=== PATIENT | female | born 1950 | race Caucasian/White ===

== ENCOUNTER 2018-03-22 00:04 | Day surgery (SDC) | payer MEDICARE ==
[~2018-03-22 00:04] MED LIST: ALEN70 PO; ASPI81CH PO; CEFU50SU; CHLO25B PO; DICL75ER PO; DULO60 PO; FLUC150A; FURO40 PO; Hydrocodone-Ap1 EA23 PO; IRBE150 PO; LEVO750; LEVSOD150 PO; MAGOXI400 PO; NEBI5 PO; POTASSIUM PHOS PO; POTCHL10ER PO; PRED5 PO; TRIA80TC TOP; Zofran Odt4 MG PO
== END 2018-03-22 15:30 | disposition home or self-care (01) ==
LOC: ATC 00:04
DX: M05.79 Rheumatoid arthritis with rheumatoid factor of multiple sites without organ or systems involvement (principal)
CPT/HCPCS: 96365; J0129

== ENCOUNTER 2018-04-22 00:25 | Day surgery (SDC) | payer MEDICARE | END 2018-04-22 15:38 | disposition home or self-care (01) | LOC: ATC 00:25 | DX: M05.79 Rheumatoid arthritis with rheumatoid factor of multiple sites without organ or systems involvement (principal) | CPT/HCPCS: 96365; J0129 ==

== ENCOUNTER 2018-07-27 00:10 | Day surgery (SDC) | payer MEDICARE ==
[~2018-07-27 00:10] MED LIST changes: +PRED1 PO
== END 2018-07-27 16:05 | disposition home or self-care (01) ==
LOC: ATC 00:10
DX: M05.79 Rheumatoid arthritis with rheumatoid factor of multiple sites without organ or systems involvement (principal)
CPT/HCPCS: 96365; J0129

== ENCOUNTER 2018-08-29 00:24 | Day surgery (SDC) | payer MEDICARE | END 2018-08-29 15:07 | disposition home or self-care (01) | LOC: ATC 00:24 | DX: M05.79 Rheumatoid arthritis with rheumatoid factor of multiple sites without organ or systems involvement (principal); Z88.5 Allergy status to narcotic agent; Z88.2 Allergy status to sulfonamides; Z88.8 Allergy status to other drugs, medicaments and biological substances; I10 Essential (primary) hypertension; E03.9 Hypothyroidism, unspecified | CPT/HCPCS: 96365; J0129 ==

== ENCOUNTER 2018-09-26 00:37 | Day surgery (SDC) | payer MEDICARE | END 2018-09-26 15:43 | disposition home or self-care (01) | LOC: ATC 00:37 | DX: M05.79 Rheumatoid arthritis with rheumatoid factor of multiple sites without organ or systems involvement (principal); I10 Essential (primary) hypertension | CPT/HCPCS: J0129 ==

== ENCOUNTER 2018-10-26 00:42 | Day surgery (SDC) | payer MEDICARE ==
[2018-10-26] MEDS ORDERED: ABAT250V IV (14:50)
== END 2018-10-26 15:13 | disposition home or self-care (01) ==
LOC: ATC 00:42
DX: M05.89 Other rheumatoid arthritis with rheumatoid factor of multiple sites (principal); I10 Essential (primary) hypertension; E66.9 Obesity, unspecified; Z79.899 Other long term (current) drug therapy; Z79.82 Long term (current) use of aspirin; Z68.41 Body mass index [BMI] 40.0-44.9, adult
CPT/HCPCS: 96365; J0129

== ENCOUNTER 2018-12-29 00:06 | Day surgery (SDC) | payer MEDICARE ==
[~2018-12-29 00:06] MED LIST changes: +ABAT250V IV
--- NOTE | 2018-12-29 14:58 | NUR ---
HTN: UPON ARRIVAL BP: 195/70, HR 61 LFA; RECHECKED USING LARGER CUFF ELENITA: 187/72, HR 66; RECHECKED MANUALLY TD: 182/80. CALLED DR DISLA OFFICE AND SPOKE WITH GIOVANNI PARKS. SHE GAVE INFO TO SAMPLE CLERK MD WHO SAID TO RESCHEDULE PT FOR NEXT WEEK AND HAVE HER F/U WITH HER PCP. PT VERBALIZED UNDERSTANDING, SAID SHE WOULD GO STRAIGHT TO URGENT CARE NOW SHE MAY NOT BE ABLE TO GET IN TO SEE HER PCP BEFORE NEXT WEEK.
[2018-12-29] MEDS ORDERED: FOLI1 PO (15:10)
[2018-12-29] MEDS ORDERED: IBUP400 PO (15:13)
[2018-12-29] MEDS ORDERED: LEFL20 PO (15:13)
== END 2018-12-29 14:55 | disposition home or self-care (01) ==
LOC: ATC 00:06
DX: M05.79 Rheumatoid arthritis with rheumatoid factor of multiple sites without organ or systems involvement (principal); I10 Essential (primary) hypertension; E66.9 Obesity, unspecified; Z79.899 Other long term (current) drug therapy; Z88.5 Allergy status to narcotic agent; Z88.2 Allergy status to sulfonamides; Z88.8 Allergy status to other drugs, medicaments and biological substances
CPT/HCPCS: 99211; J0129

== ENCOUNTER 2019-01-04 00:13 | Day surgery (SDC) | payer MEDICARE ==
[~2019-01-04 00:13] MED LIST changes: +FOLI1 PO; +IBUP400 PO; +LEFL20 PO
== END 2019-01-04 11:50 | disposition home or self-care (01) ==
LOC: ATC 00:13
DX: M05.79 Rheumatoid arthritis with rheumatoid factor of multiple sites without organ or systems involvement (principal); I10 Essential (primary) hypertension; E78.00 Pure hypercholesterolemia, unspecified; E66.9 Obesity, unspecified; Z88.5 Allergy status to narcotic agent; Z88.2 Allergy status to sulfonamides; Z88.8 Allergy status to other drugs, medicaments and biological substances; Z68.41 Body mass index [BMI] 40.0-44.9, adult
CPT/HCPCS: 96365; J0129

== ENCOUNTER 2019-02-03 00:48 | Day surgery (SDC) | payer MEDICARE | END 2019-02-03 14:58 | disposition home or self-care (01) | LOC: ATC 00:48 | DX: M05.79 Rheumatoid arthritis with rheumatoid factor of multiple sites without organ or systems involvement (principal); I10 Essential (primary) hypertension; E66.9 Obesity, unspecified; Z68.41 Body mass index [BMI] 40.0-44.9, adult | CPT/HCPCS: 96365; J0129 ==

== ENCOUNTER 2019-03-06 00:08 | Day surgery (SDC) | payer MEDICARE | END 2019-03-06 14:42 | disposition home or self-care (01) | LOC: ATC 00:08 | DX: M05.79 Rheumatoid arthritis with rheumatoid factor of multiple sites without organ or systems involvement (principal); I10 Essential (primary) hypertension; E78.00 Pure hypercholesterolemia, unspecified; E66.9 Obesity, unspecified; Z88.5 Allergy status to narcotic agent; Z88.2 Allergy status to sulfonamides; Z88.8 Allergy status to other drugs, medicaments and biological substances | CPT/HCPCS: 96365; J0129 ==

== ENCOUNTER 2019-04-05 00:12 | Day surgery (SDC) | payer MEDICARE | END 2019-04-05 14:55 | disposition home or self-care (01) | LOC: ATC 00:12 | DX: M05.79 Rheumatoid arthritis with rheumatoid factor of multiple sites without organ or systems involvement (principal); I10 Essential (primary) hypertension | CPT/HCPCS: 96365; J0129 ==

== ENCOUNTER 2019-05-09 00:07 | Day surgery (SDC) | payer MEDICARE | END 2019-05-09 15:28 | disposition home or self-care (01) | LOC: ATC 00:07 | DX: M05.79 Rheumatoid arthritis with rheumatoid factor of multiple sites without organ or systems involvement (principal); I10 Essential (primary) hypertension; E66.9 Obesity, unspecified; Z88.5 Allergy status to narcotic agent; Z88.8 Allergy status to other drugs, medicaments and biological substances; Z88.2 Allergy status to sulfonamides; Z79.82 Long term (current) use of aspirin; Z79.899 Other long term (current) drug therapy; Z68.41 Body mass index [BMI] 40.0-44.9, adult | CPT/HCPCS: 96365; J0129 ==

== ENCOUNTER 2019-06-09 00:13 | Day surgery (SDC) | payer MEDICARE ==
--- NOTE | 2019-06-09 15:11 | NUR ---
BP DEFERRED AFTER INFUSION, PT REFUSED.
== END 2019-06-09 15:08 | disposition home or self-care (01) ==
LOC: ATC 00:13
DX: M05.79 Rheumatoid arthritis with rheumatoid factor of multiple sites without organ or systems involvement (principal); I10 Essential (primary) hypertension; E66.9 Obesity, unspecified; Z88.5 Allergy status to narcotic agent; Z88.8 Allergy status to other drugs, medicaments and biological substances; Z88.2 Allergy status to sulfonamides; Z79.82 Long term (current) use of aspirin; Z79.899 Other long term (current) drug therapy; Z68.41 Body mass index [BMI] 40.0-44.9, adult
CPT/HCPCS: J0129

== ENCOUNTER → 2019-07-04 | Outpatient (CLI) | payer MEDICARE ==
[~2019-07-04] MED LIST changes: -ASPI81CH PO; +ATOR80; +Aspirin EC81 MG PO; +DILTIAZEM 24HR120 M2 PO; +KLOR-CON M1010 MEQ PO; +Lopressor 50 mg50 MG PO; +Prednisone1 MG PO; +XARELTO15 MG PO
== END | disposition home or self-care (01) ==
LOC: LAB SHORT 18:27 → LAB EV 18:27
DX: N39.0 Urinary tract infection, site not specified (principal)
CPT/HCPCS: 87086

== ENCOUNTER 2019-07-06 13:15 | Emergency (ER) | payer MEDICARE ==
[~2019-07-06] VITALS: Ht 165.1 cm; Wt 131.5 kg
[~2019-07-06 13:15] MED LIST changes: -ATOR80; -DILTIAZEM 24HR120 M2 PO; -KLOR-CON M1010 MEQ PO; -Lopressor 50 mg50 MG PO; -Prednisone1 MG PO; -XARELTO15 MG PO
[2019-07-06 13:32] LABS: BASOPHILS ABSOLUTE AUTO 0.05 K/mm3 (0.00-0.23); BASOPHILS PERCENT AUTO 1 % (0-2); EOSINOPHILS PERCENT AUTO 4 % (0-6); Hematocrit 45.5 % (33.0-51.0); IMMATURE GRAN ABSOLUTE AUTO 0.04 K/mm3 (0.00-0.10); IMMATURE GRAN PERCENT AUTO 0 % (0-1); LYMPHOCYTES ABSOLUTE AUTO 3.16 K/mm3 (0.84-5.20); LYMPHOCYTES PERCENT AUTO 31 % (21-46); MONOCYTES ABSOLUTE AUTO 0.88 K/mm3 (0.16-1.47); MONOCYTES PERCENT AUTO 9 % (4-13); Mean Corpuscular HGB 30.1 pg (26.0-34.0); Mean Corpuscular Volume 91 fL (80-100); Mean Platelet Volume 10.5 fL (9.1-12.4); NEUTROPHILS ABSOLUTE AUTO 5.77 K/mm3 (1.96-9.15); NEUTROPHILS PERCENT AUTO 56 % (41-73); Platelet Count 241 K/mm3 (150-400); RDW Coefficient Variation 13.2 % (11.7-14.2); RDW Standard Deviation 43.5 fL (35.1-46.3); Red Blood Cell Count 4.98 M/mm3 (3.80-5.20)
[2019-07-06 13:53] LABS: International Normalized Ratio 1.03; Prothrombin Time Results 10.9 Sec (9.7-11.5)
[2019-07-06 13:55] LABS: Alanine Aminotransfer (ALT/SGP 28 U/L (12-78); Albumin, Blood 3.5 g/dL (3.4-5.0); Albumin/Globulin Ratio 0.9 (0.8-1.8); Alk Phos 109 U/L (50-136); Anion Gap 5 mmol/L (6-16); Aspartate Aminotrans (AST/SGOT 20 U/L (12-37); Bilirubin, Total 0.6 mg/dL (0.1-1.0); Blood Urea Nitrogen 18 mg/dL (8-24); Bun/Creatinine Ratio 18.6 (12.0-20.0); CO2, Blood 29 mmol/L (21-32); Calcium, Blood 9.1 mg/dL (8.5-10.1); Chloride, Blood 106 mmol/L (98-108); Creatinine, Blood 0.97 mg/dL (0.40-1.00); Globulin, Blood 4.1 g/dL (2.2-4.0); Glomerular Filtration Rate >60 (60-); Glucose, Blood 104 mg/dL (70-99); Potassium, Blood 3.7 mmol/L (3.5-5.5); Sodium, Blood 140 mmol/L (136-145); Total Protein, Blood 7.6 g/dL (6.4-8.2)
[2019-07-06] MEDS ORDERED: Lopressor 50 mg50 MG PO (14:29)
[2019-07-06] MEDS ORDERED: Prednisone1 MG PO (14:30)
[2019-07-06] MEDS ORDERED: KLOR-CON M1010 MEQ PO (14:31)
== END 2019-07-06 15:18 | disposition short-term general hospital (02) ==
LOC: ER 13:15
PROVIDERS: Physician Assistant
DX: I63.9 Cerebral infarction, unspecified (principal); I10 Essential (primary) hypertension; E03.9 Hypothyroidism, unspecified; E78.5 Hyperlipidemia, unspecified; F32.9 Major depressive disorder, single episode, unspecified; Z88.5 Allergy status to narcotic agent; Z79.899 Other long term (current) drug therapy
CPT/HCPCS: 36415; 70450; 70496; 70498; 80053; 82947; 85025; 85610; 85730; 93005; 93010; 96374-59; 99285-25; Q3014; Q9967

== ENCOUNTER 2019-07-17 00:07 | Day surgery (SDC) | payer MEDICARE ==
[~2019-07-17 00:07] MED LIST changes: +KLOR-CON M1010 MEQ PO; +Lopressor 50 mg50 MG PO; +Prednisone1 MG PO
[2019-07-17] MEDS ORDERED: ATOR80 (14:46)
[2019-07-17] MEDS ORDERED: DILTIAZEM 24HR120 M2 PO (14:46)
[2019-07-17] MEDS ORDERED: XARELTO15 MG PO (14:47)
== END 2019-07-17 15:08 | disposition home or self-care (01) ==
LOC: ATC 00:07
DX: M05.79 Rheumatoid arthritis with rheumatoid factor of multiple sites without organ or systems involvement (principal); I10 Essential (primary) hypertension; E66.9 Obesity, unspecified; Z88.5 Allergy status to narcotic agent; Z88.2 Allergy status to sulfonamides; Z88.8 Allergy status to other drugs, medicaments and biological substances; Z79.82 Long term (current) use of aspirin; Z79.899 Other long term (current) drug therapy; Z68.41 Body mass index [BMI] 40.0-44.9, adult
CPT/HCPCS: 96365; J0129

== ENCOUNTER 2019-08-16 00:22 | Day surgery (SDC) | payer MEDICARE ==
[~2019-08-16 00:22] MED LIST changes: +ATOR80; +DILTIAZEM 24HR120 M2 PO; +XARELTO15 MG PO
== END 2019-08-16 15:54 | disposition home or self-care (01) ==
LOC: ATC 00:22
DX: M05.79 Rheumatoid arthritis with rheumatoid factor of multiple sites without organ or systems involvement (principal); M79.7 Fibromyalgia; I12.9 Hypertensive chronic kidney disease with stage 1 through stage 4 chronic kidney disease, or unspecified chronic kidney disease; N18.3 Chronic kidney disease, stage 3 (moderate); E55.9 Vitamin D deficiency, unspecified; G47.33 Obstructive sleep apnea (adult) (pediatric); K21.9 Gastro-esophageal reflux disease without esophagitis; G43.109 Migraine with aura, not intractable, without status migrainosus; E78.2 Mixed hyperlipidemia; M81.0 Age-related osteoporosis without current pathological fracture; E78.00 Pure hypercholesterolemia, unspecified; E66.9 Obesity, unspecified; I48.91 Unspecified atrial fibrillation; M54.5 Low back pain; E21.3 Hyperparathyroidism, unspecified; Z88.2 Allergy status to sulfonamides; Z88.5 Allergy status to narcotic agent; Z88.8 Allergy status to other drugs, medicaments and biological substances; Z79.52 Long term (current) use of systemic steroids; Z79.01 Long term (current) use of anticoagulants; Z79.899 Other long term (current) drug therapy; Z86.73 Personal history of transient ischemic attack (TIA), and cerebral infarction without residual deficits
CPT/HCPCS: 96365; J0129

== ENCOUNTER 2019-09-18 00:22 | Day surgery (SDC) | payer MEDICARE | END 2019-09-18 16:19 | disposition home or self-care (01) | LOC: ATC 00:22 | DX: M05.79 Rheumatoid arthritis with rheumatoid factor of multiple sites without organ or systems involvement (principal); I10 Essential (primary) hypertension; E66.9 Obesity, unspecified; Z68.42 Body mass index [BMI] 45.0-49.9, adult; Z88.5 Allergy status to narcotic agent; Z88.2 Allergy status to sulfonamides; Z88.8 Allergy status to other drugs, medicaments and biological substances; Z79.899 Other long term (current) drug therapy | CPT/HCPCS: 96365; J0129 ==

== ENCOUNTER 2019-11-14 00:15 | Day surgery (SDC) | payer MEDICARE ==
[~2019-11-14 00:15] MED LIST changes: +Prinivil10 MG PO
== END 2019-11-14 14:45 | disposition home or self-care (01) ==
LOC: ATC 00:15
DX: M05.79 Rheumatoid arthritis with rheumatoid factor of multiple sites without organ or systems involvement (principal)
CPT/HCPCS: 96365; J0129

== ENCOUNTER 2019-12-14 00:02 | Day surgery (SDC) | payer MEDICARE ==
[2019-12-14] MEDS ORDERED: LOSA25 PO (15:56)
== END 2019-12-14 15:29 | disposition home or self-care (01) ==
LOC: ATC 00:02
DX: M05.79 Rheumatoid arthritis with rheumatoid factor of multiple sites without organ or systems involvement (principal); I10 Essential (primary) hypertension; E66.9 Obesity, unspecified; Z68.42 Body mass index [BMI] 45.0-49.9, adult; Z79.899 Other long term (current) drug therapy
CPT/HCPCS: 96365; J0129

== ENCOUNTER 2020-01-11 08:59 | Day surgery (SDC) | payer MEDICARE ==
[~2020-01-11] VITALS: Ht 165.1 cm; Wt 283.0 kg
[~2020-01-11 08:59] MED LIST changes: +LOSA25 PO
[2020-01-11] MEDS ORDERED: ENOX100I SC (09:48)
== END 2020-01-11 10:31 | disposition home or self-care (01) ==
LOC: ORSCSDS 08:59
PROVIDERS: Anesthesiology
PROC: 3E0R33Z Introduction of Anti-inflammatory into Spinal Canal, Percutaneous Approach (ICD-10-PCS; principal; 2020-01-11 10:00)
DX: M51.16 Intervertebral disc disorders with radiculopathy, lumbar region (principal); M48.061 Spinal stenosis, lumbar region without neurogenic claudication; Z86.73 Personal history of transient ischemic attack (TIA), and cerebral infarction without residual deficits; I48.91 Unspecified atrial fibrillation; I10 Essential (primary) hypertension; E03.9 Hypothyroidism, unspecified; G47.33 Obstructive sleep apnea (adult) (pediatric); E66.9 Obesity, unspecified; Z68.42 Body mass index [BMI] 45.0-49.9, adult; Z79.01 Long term (current) use of anticoagulants; Z79.899 Other long term (current) drug therapy
CPT/HCPCS: J1040

== ENCOUNTER 2020-04-19 00:25 | Day surgery (SDC) | payer MEDICARE ==
[~2020-04-19 00:25] MED LIST changes: +ENOX100I SC
== END 2020-04-19 15:06 | disposition home or self-care (01) ==
LOC: ATC 00:25
DX: M05.79 Rheumatoid arthritis with rheumatoid factor of multiple sites without organ or systems involvement (principal); Z88.5 Allergy status to narcotic agent; Z88.2 Allergy status to sulfonamides; Z88.8 Allergy status to other drugs, medicaments and biological substances; I10 Essential (primary) hypertension; E66.9 Obesity, unspecified; Z79.82 Long term (current) use of aspirin; Z79.899 Other long term (current) drug therapy
CPT/HCPCS: J0129

== ENCOUNTER 2020-05-20 00:12 | Day surgery (SDC) | payer MEDICARE | END 2020-05-20 16:50 | disposition home or self-care (01) | LOC: ATC 00:12 | DX: M05.79 Rheumatoid arthritis with rheumatoid factor of multiple sites without organ or systems involvement (principal); I10 Essential (primary) hypertension; E66.9 Obesity, unspecified; E78.00 Pure hypercholesterolemia, unspecified; I48.91 Unspecified atrial fibrillation; E03.9 Hypothyroidism, unspecified; G47.33 Obstructive sleep apnea (adult) (pediatric); Z68.42 Body mass index [BMI] 45.0-49.9, adult; Z86.73 Personal history of transient ischemic attack (TIA), and cerebral infarction without residual deficits; Z79.52 Long term (current) use of systemic steroids; Z79.01 Long term (current) use of anticoagulants; Z79.899 Other long term (current) drug therapy; Z88.2 Allergy status to sulfonamides; Z88.5 Allergy status to narcotic agent; Z88.6 Allergy status to analgesic agent; Z88.8 Allergy status to other drugs, medicaments and biological substances | CPT/HCPCS: 96365; J0129 ==

== ENCOUNTER 2020-06-21 00:45 | Day surgery (SDC) | payer MEDICARE ==
--- NOTE | 2020-06-21 15:15 | NUR ---
PT REPORTS SHE IS CURRENTLY TAKING AMOXICILLIN TID FOR A TOOTH INFECTION. NO ORENCIA TO BE GIVEN TODAY. PT WILL RESCHEDULE HER INFUSION FOR LATE NEXT WEEK. EDUCATED ON USE OF ANTIBIOTICS AND ORENCIA.
== END 2020-06-21 15:24 | disposition home or self-care (01) ==
LOC: ATC 00:45
DX: M05.79 Rheumatoid arthritis with rheumatoid factor of multiple sites without organ or systems involvement (principal); I10 Essential (primary) hypertension; E66.9 Obesity, unspecified; Z88.5 Allergy status to narcotic agent; Z88.2 Allergy status to sulfonamides; Z88.8 Allergy status to other drugs, medicaments and biological substances; Z79.899 Other long term (current) drug therapy
CPT/HCPCS: J0129

== ENCOUNTER 2020-07-31 00:26 | Day surgery (SDC) | payer MEDICARE ==
[2020-08-01 09:10] LABS: HBSAG SCREEN Negative (Negative); HCV ANTIBODY 0.5 (0.0-0.9)
[2020-08-03 14:10] LABS: QUANTIFERON MITOGEN VALUE >10.00 IU/mL (.); QUANTIFERON NIL VALUE 0.19 IU/mL (.); QUANTIFERON TB1 AG VALUE 0.21 IU/mL (.); QUANTIFERON TB2 AG VALUE 0.24 IU/mL (.); QUANTIFERON-TB GOLD PLUS Negative (Negative)
== END 2020-07-31 15:04 | disposition home or self-care (01) ==
LOC: ATC 00:26
PROVIDERS: Internal Medicine Rheumatology
DX: M05.79 Rheumatoid arthritis with rheumatoid factor of multiple sites without organ or systems involvement (principal); I10 Essential (primary) hypertension; I48.91 Unspecified atrial fibrillation; E66.9 Obesity, unspecified; E78.5 Hyperlipidemia, unspecified; E07.9 Disorder of thyroid, unspecified; Z86.73 Personal history of transient ischemic attack (TIA), and cerebral infarction without residual deficits
CPT/HCPCS: 86803; 87340; 96365; J1602

== ENCOUNTER 2020-08-28 00:11 | Day surgery (SDC) | payer MEDICARE ==
[2020-08-28] MEDS ORDERED: SIMPONI AR50 MG/4 M1 IV (14:19)
== END 2020-08-28 15:16 | disposition home or self-care (01) ==
LOC: ATC 00:11
DX: M05.79 Rheumatoid arthritis with rheumatoid factor of multiple sites without organ or systems involvement (principal); I10 Essential (primary) hypertension; E66.9 Obesity, unspecified
CPT/HCPCS: 96365; J1602

== ENCOUNTER 2020-10-23 00:38 | Day surgery (SDC) | payer MEDICARE ==
[~2020-10-23 00:38] MED LIST changes: +SIMPONI AR50 MG/4 M1 IV
== END 2020-10-23 17:04 | disposition home or self-care (01) ==
LOC: ATC 00:38
DX: M05.79 Rheumatoid arthritis with rheumatoid factor of multiple sites without organ or systems involvement (principal); I10 Essential (primary) hypertension
CPT/HCPCS: 96365; J1602

== ENCOUNTER 2021-08-28 06:39 | Day surgery (SDC) | payer MEDICARE ==
--- NOTE | 2021-08-28 07:14 | NUR ---
DR VIRGEN IN ROOM TO CONSENT PT.
[2021-08-28] MEDS ORDERED: RITUXIN IV (07:20)
--- NOTE | 2021-08-28 07:28 | NUR ---
DR BLANKENSHIP IN ROOM FOR CARDIOVERSION.
--- NOTE | 2021-08-28 07:47 | NUR ---
PT TOLERATED CARDIOVERSION WELL.
--- NOTE | 2021-08-28 08:30 | NUR ---
DISCHARGE INSTRUCTIONS REVIEWED ALL QUESTIONS ANSWERED. 22 G IV REMOVED FROM RIGHT FA WITH INTACT CANNULA. PT ESCORTED OUT VIA WHEELCHAIR ESCORT
== END 2021-08-28 23:00 | disposition home or self-care (01) ==
LOC: MHTC 06:39
DX: I48.11 Longstanding persistent atrial fibrillation (principal); I12.9 Hypertensive chronic kidney disease with stage 1 through stage 4 chronic kidney disease, or unspecified chronic kidney disease; N18.30 Chronic kidney disease, stage 3 unspecified; E03.9 Hypothyroidism, unspecified; Z86.73 Personal history of transient ischemic attack (TIA), and cerebral infarction without residual deficits; Z79.01 Long term (current) use of anticoagulants; Z79.899 Other long term (current) drug therapy
CPT/HCPCS: 92960; 93005; 93010; J1742; J2704; J7030

== ENCOUNTER 2022-01-08 07:59 | Day surgery (SDC) | payer MEDICARE ==
[~2022-01-08] VITALS: Ht 165.1 cm; Wt 138.2 kg
[~2022-01-08 07:59] MED LIST changes: +RITUXIN IV
[2022-01-08] MEDS ORDERED: CHLO25B PO (09:43)
[2022-01-08] MEDS ORDERED: Vitamin D1000 UNI1 PO (09:44)
[2022-01-08] MEDS ORDERED: FOLI1 PO (09:44)
[2022-01-08] MEDS ORDERED: POTCHL20ER PO (09:45)
--- NOTE | 2022-01-08 10:07 | NUR ---
PATIENT ARRIVED TO [facility] RECOVERY ROOM POST CARDIOVERSION FOR 2 HOUR OBSERVATION.
--- NOTE | 2022-01-08 10:21 | NUR ---
0830 PATEINT WAS BROUGHT TO ROOM 207 AND PREPPED FOR CARDIOVERSION. PATIETN PLACED ON THE MONITOR AND ECG STRIP OF AFIB PLACED ON THE CHART. PIV STARTED TO THE INNER LEFT WRIST. IVF TO PIV. ANESTHESIA AT THE BEDSIDE AND INERVIEWED PATIENT. CONSENT SIGNED. DR. BLANKENSHIP CALLED TO THE ROOM. TIME OUT PERFROMED. DCCV STARTED. SHOCKS DELIVERED AT 0906:01, 0906:52, PATIENT REMAINS IN A FIB. PATIENT WQAS ALLOWED TO WAKE UP FROM ANESTHESIA. PATIENT WAS GIVEN CORVERT 1 MG OVER 10 MINUTES PER PROTOCOL ORDERED BY DR. BLANKENSHIP. THEN PAITENT WAS GIVEN MORE ANESTHESIA AND GIVEN ANOTHER SHOCK AT 0928 (200 JOULES EACH SHOCK). SEE STRIPS ATTACHED TO PAPERWORK SCANNED INTO CHART. PATIENT REMAINS IN A FIB. POST EKG OBTAINED. PATIENT RECOVERED AND BROUGHT TO HEART CENTER POST OP AREA AND MONITORED FOR AN EXTENDED PERIOR OF TIME ORDERED BY DR. BLANKENSHIP.
--- NOTE | 2022-01-08 13:16 | NUR ---
4490 DR. BLANKENSHIP TO THE BEDSIDE AND SPOKE TO THE PATIENT, WILL REFER TO EP FOR STUDY AND POSSIBLE ABLATION. PATIENT PIV DISCONTINUED AND PRESSUE DRESSING APPLIED. PATIENT OFF THE MONITOR AND UP AND DRESSED. ALL BELONGINGS GATHERED AND DISCHARGE INSTRUCTIONS REVIEWED WITH THE PATIENT.HISBAND HERE GARDENER FLORIST AND PATIENT DISCAHRGED HOME WITH MED LIST UNCHANGED AND REFERRAL WILL COME FROM THE OFFICE.
== END 2022-01-08 12:30 | disposition home or self-care (01) ==
LOC: MHTC 07:59 → ORSCSDS 09:30 → ORD 09:30 → MHTC 12:30
DX: I48.19 Other persistent atrial fibrillation (principal); M19.90 Unspecified osteoarthritis, unspecified site; I10 Essential (primary) hypertension; E03.9 Hypothyroidism, unspecified; E66.01 Morbid (severe) obesity due to excess calories; E10.9 Type 1 diabetes mellitus without complications; Z79.01 Long term (current) use of anticoagulants; Z86.73 Personal history of transient ischemic attack (TIA), and cerebral infarction without residual deficits
CPT/HCPCS: 92960; 93005; 93010; J1742; J2370; J2704; J7030

== ENCOUNTER 2022-11-12 13:15 | Day surgery (SDC) | payer MEDICARE ==
[~2022-11-12] VITALS: Ht 162.6 cm; Wt 127.5 kg
[~2022-11-12 13:15] MED LIST changes: +POTCHL20ER PO; +Vitamin D1000 UNI1 PO
--- NOTE | 2022-11-12 14:45 | NUR ---
11/12/22 1445 Cherie Oliver AT 1438 PLEDGET AT 1440
[2022-11-12 16:03] VITALS: BP 140/87
== END 2022-11-12 16:00 | disposition home or self-care (01) ==
LOC: ORSCSDS 13:15
PROVIDERS: Ophthalmology
PROC: 08DJ3ZZ Extraction of Right Lens, Percutaneous Approach (ICD-10-PCS; principal; 2022-11-12 14:30)
DX: H25.11 Age-related nuclear cataract, right eye (principal); H52.201 Unspecified astigmatism, right eye; I12.9 Hypertensive chronic kidney disease with stage 1 through stage 4 chronic kidney disease, or unspecified chronic kidney disease; N18.9 Chronic kidney disease, unspecified; R06.02 Shortness of breath; I48.91 Unspecified atrial fibrillation; M35.00 Sjogren syndrome, unspecified; E03.9 Hypothyroidism, unspecified; Z86.73 Personal history of transient ischemic attack (TIA), and cerebral infarction without residual deficits; E66.01 Morbid (severe) obesity due to excess calories; Z68.42 Body mass index [BMI] 45.0-49.9, adult; Z79.01 Long term (current) use of anticoagulants; Z79.899 Other long term (current) drug therapy
CPT/HCPCS: J2001; J2250; J2405; J3010; J3301; J7040; V2632

== ENCOUNTER 2022-11-19 09:14 | Day surgery (SDC) | payer MEDICARE ==
[~2022-11-19] VITALS: Ht 165.1 cm; Wt 126.9 kg
--- NOTE | 2022-11-19 10:09 | NUR ---
11/19/22 Rohan9 Estefani Brantley 0952 ANDREW 0973
[2022-11-19 10:49] VITALS: BP 136/72
== END 2022-11-19 11:04 | disposition home or self-care (01) ==
LOC: ORSCSDS 09:14
PROVIDERS: Ophthalmology
PROC: 08DK3ZZ Extraction of Left Lens, Percutaneous Approach (ICD-10-PCS; principal; 2022-11-19 10:30)
DX: H25.12 Age-related nuclear cataract, left eye (principal); Z96.1 Presence of intraocular lens; I48.91 Unspecified atrial fibrillation; E03.9 Hypothyroidism, unspecified; M35.00 Sjogren syndrome, unspecified; Z79.01 Long term (current) use of anticoagulants; I12.9 Hypertensive chronic kidney disease with stage 1 through stage 4 chronic kidney disease, or unspecified chronic kidney disease; N18.9 Chronic kidney disease, unspecified; Z79.899 Other long term (current) drug therapy
CPT/HCPCS: 82947; J2001; J2250; J3010; J3301; J7040; V2632